=== PATIENT | male | born 1975 | race Caucasian/White ===

== ENCOUNTER 2025-06-03 11:14 | Emergency (ER) | payer OTHER, SELFPAY ==
[2025-06-03 11:15] VITALS: BP 143/103
[2025-06-03 11:46] LABS: Hematocrit 42.1 % (39.0-52.0); Hemoglobin 14.7 g/dL (13.0-18.0); Mean Corp Hgb Conc. 34.9 g/dL (33.0-37.0); Mean Corpuscular Volume 78.5 fL (80.0-94.0); Nucleated Red Blood Cells % 0 % (-); Platelet Count 313 10^3/uL (130-400); Red Cell Dist. Width 13.0 % (11.5-14.5)
[2025-06-03 12:06] LABS: ALT (SGPT) 33 U/L (0-50); AST (SGOT) 20 U/L (17-59); Albumin 4.5 g/dl (3.5-5.0); Alkaline Phosphatase 118 U/L (38-126); Blood Urea Nitrogen 10 mg/dl (9-20); Calcium 9.6 mg/dl (8.4-10.2); Carbon Dioxide 22 mmol/L (22-30); Chloride 111 mmol/L (98-107); Glucose 114 mg/dl (70-99); Potassium 3.9 mmol/L (3.5-5.1); Sodium 138 mmol/L (135-145); Total Protein 6.7 g/dl (6.3-8.2); eGFR > 60.00
[2025-06-03 12:27] LABS: Urine Character Clear (Clear)
[2025-06-03] MEDS: VERSED 2 MG IV ×2 (12:46→14:30)
[2025-06-03] MEDS: CATAPRES 0.1 MG PO ×2 (12:46→14:30)
[2025-06-03 13:00] VITALS: BP 135/101
--- NOTE | 2025-06-03 13:10 | ED.GENMED ---
History of Present Illness
<Hiren Garcia PA-C - Last Filed: 06/03/25 15:02>
General
Chief Complaint: Withdrawal Symptoms
Source: patient
Time Seen by Provider: 06/03/25 12:26
History of Present Illness
History of Present Illness:
49-year-old male with no significant past medical history reports that he is withdrawing from kratom noting that for the last 2 months he has been using this twice a day, last use was last night, today now feeling lightheaded, tremulous and somewhat
diaphoretic. Patient states that he cannot sit still. Notes that he was taken the Kratom recreationally. He denies any concomitant use with other substances. Patient quit smoking about 8 or 9 months ago and only uses minimal alcohol on a monthly
basis.
Past History
<Hiren Garcia PA-C - Last Filed: 06/03/25 15:02>
Past History
ED Past Medical History: None
ED Past Surgical History: None
Social History
Tobacco: Non-smoker
Alcohol: Occasional
Drug: Other (Kratom)
Personal: Single
Living: alone
Review of Systems
<Hiren Garcia PA-C - Last Filed: 06/03/25 15:02>
Review of Systems
All Other Systems: ROS reviewed and negative except as documented in HPI and ROS
Phy Exam
<Hiren Garcia PA-C - Last Filed: 06/03/25 15:02>
Physical Exam
Physical Exam:
GENERAL: Alert , in no apparent distress, unable to sit still, constantly fidgeting
HEAD: Normocephalic atraumatic
EYE: conjunctiva clear
NECK: Supple
ENT: o/p clr, mmm.
CARDIAC: Regular rate and rhythm
LUNGS: Clear breath sounds bilaterally, no acute respiratory distress, no wheezes/rales/rhonchi
NEUROLOGICAL: Alert and oriented
SKIN: Warm and dry, skin intact.
MUSCULOSKELETAL: well perfused.
PSYCH: Normal and appropriate interaction.
Scores
<Hiren Garcia PA-C - Last Filed: 06/03/25 15:02>
Heart Failure Risk
Heart Failure Risk Score: Not Applicable
Heart Score for Chest Pain Patients
STEMI patient?: Not applicable
Withdrawal Assessment of Alcohol
Withdrawal Assessment Completed?: Not applicable
Course
<Hiren Garcia PA-C - Last Filed: 06/03/25 15:02>
Orders/Labs/Results
Orders:
Orders
06/03/25 11:22
Complete Blood Count/With Diff Urgent
Comprehensive Metabolic Panel Urgent
06/03/25 12:16
Urinalysis Reflex To Culture Urgent
Date Specimen was Collected: 06/03/25
Time Specimen was Collected: 12:15
06/03/25 12:37
Clonidine [Catapres] 0.1 mg PO NOW STA
Midazolam HCl [Versed] 2 mg IV NOW STA
06/03/25 14:20
Clonidine [Catapres] 0.1 mg PO NOW STA
Midazolam HCl [Versed] 2 mg IV NOW STA
06/03/25 15:41
Midazolam HCl [Versed] 1 mg IV NOW STA
Abnormal Lab Results
06/03/25
11:22
WBC 12.8 H 10^3/uL
(4.8-10.8)
MCV 78.5 L fL
(80.0-94.0)
Abs Immat Gran (auto) 0.1 H 10^3/uL
(0-0.05)
Absolute Neuts (auto) 10.6 H 10^3/uL
(1.4-6.5)
Neutrophils % 82.4 H %
(42.2-75.2)
Lymphocytes % 12.5 L %
(20.5-51.1)
Chloride 111 H mmol/L
(98-107)
Glucose 114 H mg/dl
(70-99)
06/03/25 11:22
06/03/25 11:22
Vital Signs
Initial and Last Documented VS:
Initial Vital Signs
Temp Pulse Resp BP Pulse Ox
99.6 F 75 19 143/103 100
06/03/25 11:15 06/03/25 11:15 06/03/25 11:15 06/03/25 11:15 06/03/25 11:15
Last Documented Vital Signs
Temp Pulse Resp BP Pulse Ox
99.6 F 75 23 125/87 94
06/03/25 11:15 06/03/25 16:30 06/03/25 16:00 06/03/25 16:00 06/03/25 16:30
<Patricia Pond PA-C - Last Filed: 06/03/25 23:31>
Orders/Labs/Results
Orders:
Orders
06/03/25 11:22
Complete Blood Count/With Diff Urgent
Comprehensive Metabolic Panel Urgent
06/03/25 12:16
Urinalysis Reflex To Culture Urgent
Date Specimen was Collected: 06/03/25
Time Specimen was Collected: 12:15
06/03/25 12:37
Clonidine [Catapres] 0.1 mg PO NOW STA
Midazolam HCl [Versed] 2 mg IV NOW STA
06/03/25 14:20
Clonidine [Catapres] 0.1 mg PO NOW STA
Midazolam HCl [Versed] 2 mg IV NOW STA
06/03/25 15:41
Midazolam HCl [Versed] 1 mg IV NOW STA
Abnormal Lab Results
06/03/25
11:22
WBC 12.8 H 10^3/uL
(4.8-10.8)
MCV 78.5 L fL
(80.0-94.0)
Abs Immat Gran (auto) 0.1 H 10^3/uL
(0-0.05)
Absolute Neuts (auto) 10.6 H 10^3/uL
(1.4-6.5)
Neutrophils % 82.4 H %
(42.2-75.2)
Lymphocytes % 12.5 L %
(20.5-51.1)
Chloride 111 H mmol/L
(98-107)
Glucose 114 H mg/dl
(70-99)
06/03/25 11:22
06/03/25 11:22
Vital Signs
Initial and Last Documented VS:
Initial Vital Signs
Temp Pulse Resp BP Pulse Ox
99.6 F 75 19 143/103 100
06/03/25 11:15 06/03/25 11:15 06/03/25 11:15 06/03/25 11:15 06/03/25 11:15
Last Documented Vital Signs
Temp Pulse Resp BP Pulse Ox
99.6 F 75 23 125/87 94
06/03/25 11:15 06/03/25 16:30 06/03/25 16:00 06/03/25 16:00 06/03/25 16:30
<Hiren Garcia PA-C - Last Filed: 06/03/25 15:02>
MDM/Problems Addressed
Differential Diagnosis Includes:
Substance abuse withdrawal
Electrolyte abnormalities
Less concern for acute infectious etiologies
Polysubstance abuse
MDM/Problems Addressed:
49-year-old male presenting to the ER admitting to daily kratom use for the last 2 months, wants to stop using so but states is experiencing withdrawals. Noted to be significantly uncomfortable, unable to sit still. Will treat suspected withdrawal
with Versed and clonidine. Will continue to observe.
<Hiren Garcia PA-C - Last Filed: 06/03/25 15:02>
*Pulse Oximetry
SaO2: 100
Oxygen Mode of Delivery: Room air
Patient hypoxic: no
<Patricia Pond PA-C - Last Filed: 06/03/25 23:31>
*Critical Care Note
Total Time (30-74mins, 75-104mins- exclusive of procedures): Not Applicable
<Hiren Garcia PA-C - Last Filed: 06/03/25 15:02>
Comment
Comment:
Following initial improvement of symptoms patient had recurrence of agitation/inability to sit still. Additional Versed and clonidine provided given this provided the patient with significant relief initially. [facility] and
disposition planning
<Patricia Pond PA-C - Last Filed: 06/03/25 23:31>
Update Note
Update Note:
Update 4:30 PM: Received patient in signout. [facility] was in to assess patient as well as provide resources for detox/rehab placement. However�patient repeatedly declined services as he lives in [place] and would prefer to follow-up for further
detox/rehab closer to home. His vital signs have remained stable and he appears well, other than fidgety. Patient is in ED with father who will be transporting patient home. They both request discharge at this time and declined further resources
here in emergency department. Will send patient few Ativan to help with withdrawal symptoms at home as well as very strict return precautions. Patient's father states he has resources out in [place] for detox/rehab
ED Attending Note
<Hiren Garcia PA-C - Last Filed: 06/03/25 15:02>
-
Portions of this chart may have been created with voice recognition software.� Occasional wrong word or��sound alike� substitutions may have occurred due to the inherent limitations of voice recognition software.
Discharge Plan
Departure
Patient Disposition: Home (Routine Discharge)
Date of Disposition: 06/03/25
Time of Disposition: 16:27
Patient with high blood pressure during this ER visit?: Yes
Condition: Good
Discharge Problem:
Withdrawal symptoms, drug or narcotic
Instructions: Drug Misuse and Addiction (DC), Drug Withdrawal (DC), BLOOD PRESSURE
Prescriptions:
New
lorazepam [Ativan] 1 mg tablet
1 mg PO BID PRN (Reason: agitation) Qty: 10 0RF
No Action
omeprazole 20 mg Capsule,Delayed Release(Dr/Ec)
20 mg PO DAILY
Referrals:
UNKNOWN - PT NOT,INTERVIEWE [Family Provider]
Activity Restrictions/Additional Instructions:
RETURN TO THE EMERGENCY DEPARTMENT WITH ANY PERSISTENT AGITATION, SEVERE WITHDRAWAL SYMPTOMS, CHEST PAIN OR SHORTNESS OF BREATH, CHANGES IN MENTAL STATUS, WORSENING OF CURRENT SYMPTOMS OR ANY OTHER CONCERNS
- You should avoid any further ingestion of Kratom. You can take Ativan twice a day as needed for withdrawal symptoms.
- It is important to stay well-hydrated
- As discussed�you declined detox/rehab placement today. Please use your resources back near your home for rehab/further management of your withdrawal
Monitor your symptoms closely and return to the emergency department with any acute worsening/new symptoms or any other concerns
Interventions
Interventions:
*Risk Screen - Suicide Last Done: 06/03/25 11:15
*General Assessment Last Done: 06/03/25 11:15
*Neglect/Abuse Screening Last Done: 06/03/25 11:15
*ED- Fall Risk Assessment Last Done: 06/03/25 11:15
*ED COVID-19 Vaccine History Last Done: 06/03/25 11:15
*Nursing Disposition Last Done: 06/03/25 16:46
ED- Neurological Assessment Last Done: 06/03/25 11:26
ED-Psychological Assessment Last Done: 06/03/25 11:26
Discharge Date and Time
Discharge Date/Time: 06/03/25 16:47
Print Language: OMANI
[2025-06-03 14:00] VITALS: BP 134/94
[2025-06-03 15:00] VITALS: BP 115/93
[2025-06-03] MEDS: VERSED 1 MG IV (15:55)
[2025-06-03 16:00] VITALS: BP 125/87
== END 2025-06-03 16:47 | disposition home or self-care (01) ==
LOC: EMR 11:14
PROVIDERS: Emergency Medicine; EMERGENCY PHYSICIAN Emergency Medicine
DX: F19.939 Other psychoactive substance use, unspecified with withdrawal, unspecified (principal); R03.0 Elevated blood-pressure reading, without diagnosis of hypertension; Z87.891 Personal history of nicotine dependence
CPT/HCPCS: 99284; 96374; 96376 ×2; 80053; 81003; 85025